=== PATIENT | female | born 1995 | race Caucasian/White ===

== ENCOUNTER 2017-02-16 20:52 | Emergency (ER) | payer OTHER ==
[~2017-02-16] VITALS: Ht 144.8 cm; Wt 84.7 kg
[~2017-02-16 20:52] MED LIST: ACET50TA PO; COLA100C5 PO; MOM30SS PO; RANI75TA9 PO; VITAPRTA PO
[2017-02-16 20:53] VITALS: BP 126/61
[2017-02-16] MEDS ORDERED: ONDANSETRON 4 MG ORAL DISINTEGRATING TAB (S0181) PO ONE (22:45)
[2017-02-16] MEDS ORDERED: MECLIZINE 25 MG TABLET PO ONE (22:45)
[2017-02-16] MEDS ORDERED: ZOFR4TAB3 PO (22:55)
[2017-02-16] MEDS ORDERED: MECL-68 PO (22:55)
== END 2017-02-16 23:05 | disposition home or self-care (01) ==
LOC: M ED 20:52
DX: R09.81 Nasal congestion (principal); H81.10 Benign paroxysmal vertigo, unspecified ear

== ENCOUNTER → 2017-08-23 | Outpatient (CLI) | payer OTHER | LOC: M RAD 17:04 | DX: Z32.01 Encounter for pregnancy test, result positive (principal) ==

== ENCOUNTER → 2018-03-20 | Outpatient (REF) | payer OTHER | LOC: M LAB REF 15:25 | DX: L08.9 Local infection of the skin and subcutaneous tissue, unspecified (principal) ==

== ENCOUNTER 2022-03-30 19:37 | Emergency (ER) | payer OTHER ==
[~2022-03-30] VITALS: Ht 144.8 cm; Wt 100.7 kg
[~2022-03-30 19:37] MED LIST changes: -ACET50TA PO; +MAPA500T2 PO; +MECL1TAB31 PO; +RANI75TA15 PO; -RANI75TA9 PO; +ZOFR4TAB14 PO
[2022-03-30 19:38] VITALS: BP 132/84
== END 2022-03-30 23:12 | disposition left against medical advice (07) ==
LOC: M ED 19:37
DX: Z53.21 Procedure and treatment not carried out due to patient leaving prior to being seen by health care provider (principal)

== ENCOUNTER → 2022-04-22 | Outpatient (CLI) | payer MEDICAID | LOC: M RAD 09:35 | PROVIDERS: ATTEND Physical Therapist | DX: R10.9 Unspecified abdominal pain (principal) ==

== ENCOUNTER → 2023-02-14 | Outpatient (REF) | payer OTHER | LOC: M PLALAB 15:51 | PROVIDERS: ATTEND Advanced Practice Midwife | DX: Z53.9 Procedure and treatment not carried out, unspecified reason (principal) ==

== ENCOUNTER → 2023-02-22 | Outpatient (REF) | payer OTHER | LOC: M PLALAB 16:17 | PROVIDERS: ATTEND Advanced Practice Midwife | DX: B00.9 Herpesviral infection, unspecified (principal) ==

== ENCOUNTER → 2023-02-28 | Outpatient (CLI) | payer OTHER ==
[2023-02-28 15:38] LABS: HEMATOCRIT 37.5 % (36.0-47.0); HEMOGLOBIN 12.4 g/dl (12.0-15.5); MEAN CORPUSCULAR HEMOGLOBIN 28.6 pg (27.0-33.0); MEAN CORPUSCULAR HGB CONC 33.1 g/dl (32.0-36.5); MEAN CORPUSCULAR VOLUME 86.6 fl (80.0-96.0); PLATELET COUNT, AUTOMATED 248 10^3/uL (150-450); RED BLOOD COUNT 4.33 10^6/uL (4.00-5.40); WHITE BLOOD COUNT 7.3 10^3/uL (4.0-10.0)
[2023-02-28 16:36] LABS: HIV 1&2 SCREEN NEGATIVE (NEGATIVE)
[2023-02-28 16:45] LABS: HEPATITIS C VIRUS ABY INDEX 0.19 INDEX (<0.8)
[2023-02-28 17:19] LABS: GC DNA AMPLIFICATION NEGATIVE (NEGATIVE)
== END ==
LOC: M PLALAB 09:20
PROVIDERS: ATTEND Advanced Practice Midwife
DX: Z34.81 Encounter for supervision of other normal pregnancy, first trimester (principal)

== ENCOUNTER → 2023-03-09 | Outpatient (CLI) | payer OTHER ==
[~2023-03-09] MED LIST changes: +MECL-209 PO; -MECL1TAB31 PO
== END ==
LOC: M PLALAB 09:42
PROVIDERS: ATTEND Advanced Practice Midwife
DX: Z34.80 Encounter for supervision of other normal pregnancy, unspecified trimester (principal)

== ENCOUNTER → 2023-07-04 | Outpatient (CLI) | payer OTHER ==
[2023-07-04 14:04] LABS: HEMATOCRIT 35.7 % (36.0-47.0); HEMOGLOBIN 11.6 g/dl (12.0-15.5); MEAN CORPUSCULAR HEMOGLOBIN 28.7 pg (27.0-33.0); MEAN CORPUSCULAR HGB CONC 32.5 g/dl (32.0-36.5); MEAN CORPUSCULAR VOLUME 88.4 fl (80.0-96.0); PLATELET COUNT, AUTOMATED 212 10^3/uL (150-450); RED BLOOD COUNT 4.04 10^6/uL (4.00-5.40); WHITE BLOOD COUNT 8.9 10^3/uL (4.0-10.0)
[2023-07-04 15:20] LABS: CHLAMYDIA DNA AMPLIFICATION NEGATIVE (NEGATIVE); GC DNA AMPLIFICATION NEGATIVE (NEGATIVE)
== END ==
LOC: M PLALAB 09:34
PROVIDERS: ATTEND Specialist
DX: Z34.82 Encounter for supervision of other normal pregnancy, second trimester (principal)

== ENCOUNTER → 2023-08-03 | Outpatient (CLI) | payer OTHER | LOC: M WHC 10:16 | PROVIDERS: ATTEND Obstetrics & Gynecology | DX: O26.843 Uterine size-date discrepancy, third trimester (principal) ==

== ENCOUNTER → 2023-08-21 | Outpatient (REF) | payer OTHER | LOC: M PLALAB 13:03 | PROVIDERS: ATTEND Obstetrics & Gynecology | DX: Z36.89 Encounter for other specified antenatal screening (principal); Z3A.36 36 weeks gestation of pregnancy ==

== ENCOUNTER 2023-09-06 20:14 | Outpatient (CLI) | payer OTHER ==
[~2023-09-06] VITALS: Ht 144.8 cm; Wt 104.2 kg
[~2023-09-06 20:14] MED LIST changes: +VALA1TAB5 PO
[2023-09-06 20:28] VITALS: BP 130/63
[2023-09-06] MEDS ORDERED: ACET500P3 PO (20:35)
[2023-09-06] MEDS ORDERED: HOME MED LIST COMPLETE! XX SCH (20:35)
[2023-09-06] MEDS ORDERED: TUMS500C PO (20:36)
[2023-09-06] MEDS ORDERED: VALA1TAB5 PO (21:24)
== END 2023-09-06 21:45 | disposition home or self-care (01) ==
LOC: M LDO 20:14
PROVIDERS: ATTEND Advanced Practice Midwife
DX: O36.8130 Decreased fetal movements, third trimester, not applicable or unspecified (principal); O98.513 Other viral diseases complicating pregnancy, third trimester; R87.810 Cervical high risk human papillomavirus (HPV) DNA test positive; Z3A.38 38 weeks gestation of pregnancy
CPT/HCPCS: 59025; G0463

== ENCOUNTER 2023-09-11 05:34 | Inpatient (IN) | payer OTHER ==
[~2023-09-11] VITALS: Ht 139.7 cm; Wt 103.6 kg
[2023-09-11] VITALS (9 sets, daily range): BP systolic 100–115; BP diastolic 53–66; TEMP 97.9; O2SAT 94–99
[~2023-09-11 05:34] MED LIST changes: +ACET500P3 PO; +TUMS500C PO
[2023-09-11] MEDS: BICITRA 30ML SOLN UDC PO ONE (05:55)
[2023-09-11] MEDS: LACTATED RINGER'S 1000 ML IV STA (06:22)
[2023-09-11 06:46] LABS: HEMATOCRIT 33.1 % (36.0-47.0); HEMOGLOBIN 10.9 g/dl (12.0-15.5); MEAN CORPUSCULAR HGB CONC 32.9 g/dl (32.0-36.5); MEAN CORPUSCULAR VOLUME 82.1 fl (80.0-96.0); PLATELET COUNT, AUTOMATED 264 10^3/uL (150-450); RED BLOOD COUNT 4.03 10^6/uL (4.00-5.40); WHITE BLOOD COUNT 8.8 10^3/uL (4.0-10.0)
[2023-09-11] MEDS ORDERED: ceFAZolin SOD 2 GM in IV 1 EA IV ONE (07:25)
[2023-09-11] MEDS: CLINDAMYCIN 900 MG in IV 1 EA IV ONE (07:35)
[2023-09-11] MEDS: LR 1,000 ML IV SCH (07:40)
[2023-09-11] MEDS: GENTAMICIN 400 MG in D5W 50 ML IV ONE (08:00)
[2023-09-11] MEDS ORDERED: PHENYLephrine 500MCG 5ML (100MCG/ML) SYRINGE As Ordered ONE (08:39)
[2023-09-11] MEDS ORDERED: ePHEDrine SULFATE 25 MG/5 ML(5MG/ML) SYRINGE As Ordered ONE (08:39)
[2023-09-11] MEDS ORDERED: METOCLOPRAMIDE INJ 10MG/2ML VIAL As Ordered ONE (08:39)
[2023-09-11] MEDS ORDERED: GLYCOPYRROLATE INJ 0.2 MG/ML 2 ML VIAL As Ordered ONE (08:39)
[2023-09-11] MEDS ORDERED: KETOROLAC 60MG 2ML VIAL As Ordered ONE (08:39)
[2023-09-11] MEDS ORDERED: ONDANSETRON 4MG 2ML VIAL As Ordered ONE (08:39)
[2023-09-11] MEDS ORDERED: MORPHINE PRES-FREE INJ 10 MG/10 ML VIAL As Ordered ONE (08:39)
[2023-09-11] MEDS ORDERED: ACETAMINOPHEN 1000MG 100ML IV BAG As Ordered ONE (08:39)
[2023-09-11] MEDS ORDERED: OXYTOCIN 30UNITS IN 0.9% NaCl 500ML IV BAG As Ordered ONE (08:39)
[2023-09-11] MEDS ORDERED: SIMETHICONE 80MG CHEW TAB PO PRN (08:50)
[2023-09-11] MEDS ORDERED: LR 1,000 ML IV SCH (08:50)
[2023-09-11] MEDS ORDERED: ONDANSETRON 4MG 2ML VIAL IV PRN ×2 (08:50→09:35)
[2023-09-11] MEDS ORDERED: MOM 30ML SUSPENSION UDC PO PRN (08:50)
[2023-09-11] MEDS ORDERED: RHOGAM 300MCG (1500IU) INJ IM SCH (08:50)
[2023-09-11] MEDS ORDERED: METHYLERGONOVINE MALEATE 0.2 MG TAB PO PRN (08:50)
[2023-09-11] MEDS ORDERED: ANUSOL HC CREAM 30GM TOP PRN (08:50)
[2023-09-11] MEDS: OXYTOCIN DRIP 30 UNITS in IV 1 EA IV SCH (09:21)
[2023-09-11] MEDS ORDERED: fentaNYL 100 MCG/2 ML INJECTION IV PRN (09:35)
[2023-09-11] MEDS ORDERED: MEPERIDINE 25 MG/ML 1ML VIAL IV PRN (09:35)
[2023-09-11] MEDS ORDERED: oxyCODONE 5MG TAB PO PRN (09:35)
[2023-09-11] MEDS ORDERED: METOCLOPRAMIDE INJ 10MG/2ML VIAL IV PRN (09:35)
[2023-09-11] MEDS ORDERED: HYDROMORPHONE HCL 0.5 MG/ 0.5 ML SYRINGE IV PRN (09:35)
[2023-09-11] MEDS ORDERED: NALOXONE INJ 0.4MG/1ML VIAL IV PRN ×2 (09:35)
[2023-09-11] MEDS ORDERED: diphenhydrAMINE 50MG/ML VIAL IV PRN (09:35)
[2023-09-11] MEDS ORDERED: **NOTE PATIENT COMMENT** MISC XX SCH (10:00)
[2023-09-11] MEDS: KETOROLAC 30 MG/ML 1ML VIAL IV SCH (15:02)
[2023-09-11] MEDS: PRENATAL VITAMINS CHEWABLE TABLET PO SCH (15:51)
[2023-09-11] MEDS: DOCUSATE SODIUM 100MG CAPSULE PO SCH (15:51)
[2023-09-11] MEDS: SLF 3 ML SYR IV SCH (15:51)
[2023-09-12 01:52] VITALS: BP 103/55; O2SAT 100
[2023-09-12 06:00] VITALS: BP 95/51; O2SAT 99
[2023-09-12 07:01] LABS: HEMATOCRIT 25.3 % (36.0-47.0); MEAN CORPUSCULAR HEMOGLOBIN 27.4 pg (27.0-33.0); MEAN CORPUSCULAR HGB CONC 32.8 g/dl (32.0-36.5); MEAN CORPUSCULAR VOLUME 83.5 fl (80.0-96.0); PLATELET COUNT, AUTOMATED 212 10^3/uL (150-450); RED BLOOD COUNT 3.03 10^6/uL (4.00-5.40); WHITE BLOOD COUNT 11.4 10^3/uL (4.0-10.0)
[2023-09-12 07:03] LABS: HEMOGLOBIN 8.3 g/dl (12.0-15.5)
[2023-09-12] MEDS: PERCOCET 5MG/325MG TAB PO PRN ×2 (07:31→21:08)
[2023-09-12 10:00] VITALS: BP 102/53; O2SAT 96
[2023-09-12] MEDS: IBUPROFEN 800 MG TAB PO SCH (11:16)
[2023-09-12 14:00] VITALS: BP 120/61; O2SAT 98
[2023-09-12 18:00] VITALS: BP 107/54; O2SAT 97
[2023-09-12] MEDS: FERROUS SULFATE 325MG TAB PO SCH (21:06)
[2023-09-12 22:20] VITALS: BP 109/52; O2SAT 97
[2023-09-13 02:52] VITALS: BP 115/55; O2SAT 97
[2023-09-13 06:12] VITALS: BP 103/52; O2SAT 98
[2023-09-13] MEDS: MEASLES,MUMPS,RUBELLA VACCINE INJ (MMR-II) SC.IMMUN ONE (09:00)
[2023-09-13 10:00] VITALS: BP 106/67; O2SAT 98
[2023-09-13] MEDS ORDERED: IBUP80TA PO (12:11)
[2023-09-13] MEDS ORDERED: FERR1TAB8 PO (12:11)
== END 2023-09-13 13:24 | disposition home or self-care (01) | DRG 540 ==
LOC: M LDI 05:34 → M OBS 10:30
PROVIDERS: ADMIT Obstetrics & Gynecology; ATTEND Obstetrics & Gynecology
PROC: 10D00Z1 Extraction of Products of Conception, Low, Open Approach (ICD-10-PCS; principal; 2023-09-11 07:30)
DX: O98.32 Other infections with a predominantly sexual mode of transmission complicating childbirth (principal); Z37.0 Single live birth; Z3A.39 39 weeks gestation of pregnancy; Z87.59 Personal history of other complications of pregnancy, childbirth and the puerperium